=== PATIENT | male | born 1945 | race African-American/Black ===

== ENCOUNTER → 2019-06-27 | Day surgery (SDC) | payer MEDICARE, MEDICAID ==
[~2019-06-27] VITALS: Ht 170.2 cm; Wt 72.6 kg
[~2019-06-27] MED LIST: AMLO10TA80 PO; CHOL20004 PO; DOCU-138 PO; FINA5TAB11 PO; FLUT1DIS2 IH; GABA-290 PO; IBUP-2030 PO; LACTATED RINGERS 1,000 ML IV SCH; ROSU5TAB PO; TERA2CAP4 PO; [UNRECOGNIZED DRUG - CODE] PO
[2019-06-27 08:21] LABS: OPIATES URINE SCREEN NEGATIVE (NEGATIVE)
[2019-06-27 08:22] LABS: *AMPHETAMINES SCREEN URINE NEGATIVE (NEGATIVE); *BARBITURATES SCREEN URINE NEGATIVE (NEGATIVE); *BENZODIAZEPINES SCREEN URINE NEGATIVE (NEGATIVE); *COCAINE SCREEN URINE PRESUMTIVE POSITIVE (NEGATIVE); CANNABINOID URINE SCREEN NEGATIVE (NEGATIVE); METHADONE URINE SCREEN NEGATIVE (NEGATIVE); PHENCYCLIDINE URINE SCREEN NEGATIVE (NEGATIVE)
== END | disposition home or self-care (01) ==
LOC: OR 07:18
PROVIDERS: ATTEND Specialist
DX: K40.90 Unilateral inguinal hernia, without obstruction or gangrene, not specified as recurrent (principal); Z53.8 Procedure and treatment not carried out for other reasons; Z79.899 Other long term (current) drug therapy
CPT/HCPCS: 80305

== ENCOUNTER 2019-07-21 05:06 | Day surgery (SDC) | payer MEDICARE, MEDICAID ==
[~2019-07-21] VITALS: Ht 170.2 cm; Wt 72.5 kg
[~2019-07-21 05:06] MED LIST changes: -LACTATED RINGERS 1,000 ML IV SCH
[2019-07-21] MEDS ORDERED: LACTATED RINGERS 500 ML IV SCH (06:00)
[2019-07-21 06:37] LABS: CLARITY URINE CLEAR (CLEAR); COLOR URINE YELLOW (YELLOW); KETONES URINE NEGATIVE (NEGATIVE); LEUKOCYTE ESTERASE URINE NEGATIVE (NEGATIVE); NITRITE URINE NEGATIVE (NEGATIVE); OCCULT BLOOD URINE TRACE (NEGATIVE); PROTEIN URINE NEGATIVE (NEGATIVE); UROBILINOGEN URINE 0.2 E.U./dL (0.2-1.0)
[2019-07-21] MEDS ORDERED: LIDOCAINE HCL 1% 20ML VIAL (Pyxis) INJ ONE (07:02)
[2019-07-21] MEDS ORDERED: SKIN ADHESIVE 0.7 GM EA TOP ONE (07:02)
[2019-07-21] MEDS ORDERED: NORMAL SALINE 0.9% 10 ML SYR ONE (07:02)
[2019-07-21] MEDS ORDERED: BUPIVACAINE HCL 0.5% (5MG/ML) 50ML ONE (07:03)
[2019-07-21] MEDS ORDERED: BACITRACIN 50,000 UNITS/VIAL ONE (07:03)
[2019-07-21 07:19] LABS: BASOPHILS % 0.8 % (0.0-2.0); EOSINOPHILS % 3.2 % (0.0-5.0); HEMOGLOBIN. 14.4 g/dL (14.0-18.0); LYMPHOCYTES % 27.2 % (20.0-50.0); MEAN CORPUSCULAR HEMOGLOBIN 23.8 pg (28.0-32.0); MEAN CORPUSCULAR VOLUME 71.1 fL (80.0-94.0); MEAN PLATELET VOLUME 7.7 fl (7.4-10.4); MONOCYTES % 6.9 % (2.0-8.0); NEUTROPHILS % 61.9 % (40.0-76.0); PLATELET 171 x1000/uL (130-400); RED BLOOD CELL COUNT 6.04 mill/uL (4.7-6.1); RED CELL DISTRIBUTION WIDTH 14.4 % (11.6-14.6)
[2019-07-21 07:20] LABS: PHENCYCLIDINE URINE SCREEN NEGATIVE (NEGATIVE)
[2019-07-21 07:21] LABS: *AMPHETAMINES SCREEN URINE NEGATIVE (NEGATIVE); *BARBITURATES SCREEN URINE NEGATIVE (NEGATIVE); *BENZODIAZEPINES SCREEN URINE NEGATIVE (NEGATIVE); *COCAINE SCREEN URINE NEGATIVE (NEGATIVE); CANNABINOID URINE SCREEN NEGATIVE (NEGATIVE); METHADONE URINE SCREEN NEGATIVE (NEGATIVE); OPIATES URINE SCREEN NEGATIVE (NEGATIVE)
[2019-07-21 07:28] LABS: PARTIAL THROMBOPLASTIN TIME 26.7 sec (23.4-31.0); PROTHROMBIN TIME 10.2 sec (9.6-11.0)
[2019-07-21 07:30] LABS: CHLORIDE 108 mEq/L (98-107)
[2019-07-21] MEDS ORDERED: FAMO20TA8 PO (08:06)
[2019-07-21] MEDS ORDERED: HYDROMORPHONE HCL/PF 2MG/ML CPJ IV PRN (10:30)
[2019-07-21] MEDS ORDERED: KETOROLAC 30MG/ML VIAL IV ONE (11:00)
[2019-07-21 11:04] VITALS: BP 137/83
== END 2019-07-21 12:20 | disposition home or self-care (01) ==
LOC: OR 05:06
PROVIDERS: ATTEND Specialist
DX: K40.90 Unilateral inguinal hernia, without obstruction or gangrene, not specified as recurrent (principal); I10 Essential (primary) hypertension; J44.9 Chronic obstructive pulmonary disease, unspecified; E78.00 Pure hypercholesterolemia, unspecified; M13.0 Polyarthritis, unspecified; F31.9 Bipolar disorder, unspecified; Z87.891 Personal history of nicotine dependence; Z79.899 Other long term (current) drug therapy; Z98.890 Other specified postprocedural states
CPT/HCPCS: 36415; 49505; 80048; 80305; 81003; 85025; 85610; 85730; 93005; C1781; J0690; J1100; J1885; J2250; J2370; J2405; J2704; J3490